=== PATIENT | male | born 1940 | race Caucasian/White ===

== ENCOUNTER → 2018-09-06 08:09 | Outpatient (CLI) | payer MEDICARE, SELFPAY ==
--- NOTE | 2018-09-06 09:54 | PM.TREADMILL ---
Cardiac Stress Test Report Referral & Results Date Patient Seen: 09/06/18 Requesting provider: Brett Torres Indication: Dyspnea upon exertion Rest ECG: Nonspecific interventricular conduction delay and poor R-wave progression Procedure Note: Today following both written and verbal informed consent the patient was exercised according to a standard Adam protocol patient went for a total of 10 min 16 sec achieving a maximum heart rate of 160 maximum systolic blood pressure of 210. This is approximately 12.8 METS. Exercise was terminated at this point because of patient unable to continue. Patient was also given Cardiolite through a previously started Hep-Lock IV by the nuclear fuels research engineer approximately 1 minute prior to the cessation of exercise. There are no ST segment changes Normal heart rate and blood pressure response Functional aerobic impairment so far off the scale I can only estimate his functional aerobic capacity to be equal to an active 50-year-old male No dysrhythmias Oxygen saturation at peak exercise 94-95% Impression: No evidence of ischemia with amazing exercise capacity Perfusion imaging to be reported separately Clinical correlation suggested Please note: Actual ECG tracings can be found in the PACS system.
--- NOTE | 2018-09-07 19:39 | DI.NM.S_ITS ---
DATE OF SERVICE: 09/06/2018 PROCEDURE: Exercise perfusion study. INDICATIONS: Dyspnea on exertion. RADIOPHARMACEUTICAL: 26.7 mCi technetium-99m Myoview IV was injected at stress and 27.0 mCi technetium-99m Myoview IV was injected at rest. CARDIAC STRESS: Patient underwent exercise perfusion study under the supervision of an attending staff. He walked on Adam protocol for 10 minutes 16 seconds and achieved 10 METs of workload with normal heart rate response. Initial blood pressure was 130/80. Peak blood pressure, 210/90, suggestive of hypertensive response, Patient achieved, as per the report, 113% of target heart rate, Baseline rhythm was sinus with poor R-wave progression. There was initially mild sinus bradycardia. During stress, there was no obvious convincing ischemic changes. There were no significant arrhythmias. No symptoms were reported. RAW DATA: Increased subdiaphragmatic activity. GATED STUDY: resting LV ejection fraction 68 and stress LV ejection fraction 87%. obvious wall motion abnormalities. No transient ischemic dilatation. TID ratio is 0.55, which is within normal limits. Resting end-diastolic volume is 109 mL. Lung/heart ratio is 0.38, which is within normal limits. MYOCARDIAL PERFUSION SCAN: Resting supine images revealed moderate size mild-to- moderately decreased perfusion of inferior wall, inferoapex as well as anteroseptum and basal anterior wall. During stress supine images, there was mildly decreased perfusion of basal inferior wall. During prone images, there was normal myocardial perfusion. Stress supine images are better than resting supine images. During prone, there was no convincing ischemia infarction. CONCLUSION: I will call this study a normal myocardial perfusion study with evidence of tissue attenuation artifact which got resolved during prone images. Prone images have normal myocardial perfusion. Patient has good exercise tolerance. Functional aerobic impairment was off scale but he achieved 12.8 METs of workload. Total exercise time 10 minutes 16 seconds. Hypertensive blood pressure response. Stress left ventricular (LV) ejection fraction 87%. Overall this is a low-risk myocardial perfusion scan. Enrique Reyes - JESSICA/tierra/ doc#: [id number]/job#: [id number] dd: 09/07/2018 17:17:00 dt: 09/07/2018 19:25:00 DICTATING MD/COPIES TO: Alice Bruce MD COPIES MNE: SHAWN
== END ==
PROVIDERS: Visit Provider Family Medicine
DX: R06.00 Dyspnea, unspecified (principal)
CPT/HCPCS: 78452; 93016; 93017; 93018; A9502

== ENCOUNTER → 2018-09-24 08:16 | Outpatient (CLI) | payer MEDICARE, SELFPAY ==
--- NOTE | 2018-09-24 | DI.RAD.S_ITS ---
PROCEDURE: XR LUMBAR SPINE 2-3V INDICATIONS: LOW BACK PAIN AND RIGHT HIP PAIN TECHNIQUE: 3 views of the lumbar spine were acquired. COMPARISON: None. FINDINGS: Bones: 5 [id number] vertebrae are present. Mild levocurvature. Multilevel grade one retrolisthesis. Grade 1 spondylolisthesis L4-L5. Mild multilevel disc degeneration in the lower lumbar spine facet joint arthropathy. No vertebral body compression fractures. No suspicious bony lesions. Soft tissues: Overlying bowel gas pattern is normal. No suspicious soft tissue calcifications. IMPRESSION: Multilevel degenerative disc and facet disease. Dictated by: Raz Goldsmith [facility] Interpreted: Deepthi Conte MD on 09/24/2018 at 10:21 Approved by: Deepthi Conte M.D. on 09/24/2018 at 10:49
== END ==
PROVIDERS: PCP Family Medicine; Visit Provider Chiropractor
DX: M51.36 Other intervertebral disc degeneration, lumbar region (principal); M47.816 Spondylosis without myelopathy or radiculopathy, lumbar region; M54.5 Low back pain; M25.551 Pain in right hip; M43.16 Spondylolisthesis, lumbar region
CPT/HCPCS: 72100